=== PATIENT | female | born 1975 | race Caucasian/White ===

== ENCOUNTER 2020-03-08 10:37 | Emergency (ER) | payer OTHER, SELFPAY ==
--- NOTE | ~2020-03-08 | CT_ITS ---
EXAMINATION: CT abdomen pelvis w con DATE: 03/08/2020 12:16 INDICATION: Right lower quadrant abdominal pain TECHNIQUE: Computed tomography (CT) of the abdomen and pelvis was performed with 100 cc Omnipaque 350 intravenous contrast. Automated exposure control and iterative reconstruction technique were employe d. Exam dose: 894.78 mGy-cm total exam DLP. COMPARISON: 03/08/2020 pelvic ultrasound examination FINDINGS: Normal heart size. No pericardial or pleural effusion. The lung bases are clear of infiltra te or consolidation. There are one or more small stones in the dependent aspect of the gallbladder. No gallbladder wall th ickening or pericholecystic fluid or inflammation. The common bile duct or pancreatic duct are of nor mal caliber. No hepatic, splenic, pancreatic, adrenal space-occupying mass lesion. Approximately 4.7 cm parapelvic right renal cyst. No left renal mass lesion. No urinary tract calculu s or hydroureteronephrosis. Normal caliber of the abdominal aorta. No intraperitoneal or retroperitoneal or pelvic mass lesion or adenopathy or ascites. Normal appendix. No bowel obstruction, bowel wall thickening, pneumatosis or intraperitoneal free air. The uterus and adnexal areas are unremarkable. The urinary bladder appears normal. Included skeletal structures are unremarkable. IMPRESSION: Normal appendix Cholelithiasis Approximately 4.7 cm right renal parapelvic cyst Reviewed, dictated and finalized at [facility] Reviewed, dictated and finalized at [facility].
--- NOTE | ~2020-03-08 | US_ITS ---
EXAMINATION: US pelvic complete w TV EXAM DATE: 03/08/2020 11:34 INDICATION: Right lower abdominal pain. TECHNIQUE: Pelvic transabdominal and transvaginal sonogram was performed. There are multiple graysca le and Doppler images available for interpretation. There is no prior study for comparison. FINDINGS: Uterus measures 10.2 x 5.4 x 6.8 cm, and is morphologically normal. Endometrial stripe me asures 4 mm, within normal limits. There are nabothian cysts. There is no free pelvic fluid. Right adnexa: The ovary measures 4.1 x 2.4 x 2.6 cm and is morphologically normal. Ovarian vascular f low confirmed. Left adnexa: The ovary measures 2.7 x 2.3 x 2.3 cm and is morphologically normal. Ovarian vascular fl ow confirmed. IMPRESSION: Unremarkable pelvic ultrasound exam. Reviewed, dictated and finalized at [facility].
[2020-03-08 10:59] VITALS: BP 115/67; PULSE 75; RESP 15; TEMP 36.8; O2SAT 100
[2020-03-08 11:10] LABS: Basophils Absolute Auto 0.1 K/mm3 (0.0-0.1); Basophils Percent Auto 0.8 % (0.2-1.2); Eosinophils Absolute Auto 0.1 K/mm3 (0-0.3); Eosinophils Percent Auto 0.7 % (0-4.4); Hematocrit 39.1 % (37.0-47.0); Hemoglobin 12.5 g/dL (12.0-15.0); Immature Granulocyte Absolute 0.03 K/mm3 (0.00-0.031); Immature Granulocyte Percent A 0.3 % (0-0.5); Lymphocytes Absolute Auto 2.78 K/mm3 (0.9-3.2); Lymphocytes Percent Auto 31.2 % (18.3-44.2); Mean Corpuscular Volume 84.4 fl (80-100); Mean Platelet Volume 11.4 fl (7.4-10.4); Monocytes Absolute Auto 0.6 K/mm3 (0.1-0.6); Monocytes Percent Auto 7.1 % (2.6-8.5); Neutrophils Absolute Auto 5.3 K/mm3 (1.3-6.7); Neutrophils Percent Auto 59.9 % (45.5-73.1); Platelet Count Result 327 k/mm3 (150-375); Red Blood Count 4.63 M/mm3 (4.2-5.4); Red Cell Distribution Width 14.5 % (11.5-14.5); White Blood Count 8.9 K/mm3 (4.5-10.0)
--- NOTE | 2020-03-08 11:17 | ED.ABDPAIN ---
HPI - Abdominal Pain General Chief Complaint: Abdominal Pain Stated Complaint: rt abd pain Time Seen by Provider: 03/08/20 10:40 Source: patient Mode of arrival: ambulatory Limitations: no limitations History of Present Illness HPI narrative: This patient is a 45 year old female with history of PCOS who presents for evaluation of right lower abdominal pain. She has had this pain for 1 week but it became worse over the past 2 day . This pain is worse with walking and moving. She reports pain is located right lower abdomen, right lower back and it occasionally radiates into her upper thigh. She denies fever, vomiting or urinary symptoms. MD elicited complaint: abdominal pain Related Data Allergies Allergy/AdvReac Type Severity Reaction Status Date / Time No Known Allergies Allergy Mild Verified 03/23/10 15:07 Review of Systems Review of Systems: All systems reviewed & are unremarkable except as noted in HPI and below Constitutional: Constitutional: Denies chills and Denies fever(s) Gastrointestinal: Gastrointestinal: Reports abdominal pain, Denies diarrhea and Denies vomiting Genitourinary: Genitourinary: Denies hematuria, Denies nocturia, Denies dysuria, Denies flank pain and Denies urinary incontinence [facility] Past Medical History Medical History (Updated 03/08/20 @ 13:05 by Whit Foreman MD) Polycystic ovarian disease Surgical History Surgical History (Updated 03/08/20 @ 11:18 by Whit Foreman MD) H/O section Hx of tubal ligation Social History Social History (Updated 03/08/20 @ 11:18 by Whit Foreman MD) Smoking status: Current every day smoker Gender identity (if verbalized by the patient): Female Exam Narrative: Exam Narrative: GENERAL: Well-appearing, well-nourished, and in no acute distress. HEAD: Normocephalic, atraumatic EYES: PERRLA and EOMI, conjunctiva clear without discharge NOSE: Nares clear, no rhinorrhea or epistaxis THROAT:Mucous membranes moist, NECK: Supple, without lymphadenopathy or mass RESPIRATORY: No respiratory distress, Airway patent, Respirations non-labored, Clear to auscultation without rales, rhonchi or wheeze HEART: Regular rate and rhythm. No murmur heard. Normal peripheral pulses. ABDOMEN: Soft, mild RLQ, nondistended, normal active bowel sounds. No masses. No rebound or guarding, No organomegaly. EXTREMITIES: No edema, normal strength with full range of motion. SKIN: Warm, dry, normal color without rash NEURO: Alert and oriented x3. CN 2-12 grossly intact. No focal deficits. PSYCH: Normal mood and affect. Course Reevaluation(s) Reevaluation #1: I Discussed evaluation and results with patient. Urine had hematuria due to patient's menstrual cycle. She will follow up with PCP regarding renal cyst and she will follow up gynecology regarding pelvic pain. No ovarian torsion Date: 03/08/20 Time: 13:03 Vital Signs Vital signs: Vital Signs Temperature 98.3 F 03/08/20 10:59 Pulse Rate 75 03/08/20 10:59 Respiratory Rate 15 03/08/20 10:59 Blood Pressure 115/67 03/08/20 10:59 Pulse Oximetry 100 03/08/20 10:59 Temperature 98.3 F 03/08/20 10:59 Pulse Rate 75 03/08/20 10:59 Respiratory Rate 15 03/08/20 10:59 Blood Pressure 115/67 03/08/20 10:59 Pulse Oximetry 100 03/08/20 10:59 MDM - Abdominal Pain Lab Data Attestation: I reviewed the patient's lab results. Result diagrams: 03/08/20 10:50 03/08/20 10:50 Labs: Lab Results 03/08/20 03/08/20 03/08/20 Range/Units 10:50 10:50 10:50 WBC 8.9 (4.5-10.0) K/mm3 RBC 4.63 (4.2-5.4) M/mm3 Hgb 12.5 (12.0-15.0) g/dL Hct 39.1 (37.0-47.0) % MCV 84.4 (80-100) fl MCH 27.0 (26-34) pg MCHC 32.0 (32-36) g/dl RDW 14.5 (11.5-14.5) % Plt Count 327 (150-375) k/mm3 MPV 11.4 H (7.4-10.4) fl Immature Gran % (Auto) 0.3 (0-0.5) % Neut % (Auto) 59.9 (45.5-73.1) % Lym
[2020-03-08 11:19] LABS: Add Urine Microscopic? YES; Appearance Urine Cloudy (Clear); Bilirubin Urine Negative (Negative); Blood Urine 3+ (Negative); Color Urine Red (Yellow); Glucose Urine UA Negative (Negative); Ketones Urine Negative (Negative); Leukocyte Esterase Ur Trace LEU/UL (Negative); Mucus Urine Few /lpf; Nitrate Urine Negative (Negative); Protein Urine 2+ mg/dL (Negative); RBC Urine >75 /hpf (0-2); Specific Grav Ur 1.021 (1.001-1.035); Squamous Epithelial Cell Urine Many /hpf (Few); Urobilinogen Urine Negative mg/dL (<2.0)
[2020-03-08 11:37] LABS: Alanine Aminotransferase 14 U/L (4-35); Albumin Level 4.5 g/dL (3.5-5.1); Alkaline Phosphatase 75 U/L (38-126); Anion Gap 13.4 mmol/L (7-16); Aspartate Amino Transferase 21 U/L (14-36); Bilirubin,Total 0.4 mg/dL (0.2-1.3); Blood Urea Nitrogen 9 mg/dL (7-17); Calcium 9.2 mg/dL (8.4-10.2); Carbon Dioxide 26 mmol/L (22-30); Chloride 102 mmol/L (98-107); Estimated CRCL calculation 79 ml/min; Estimated Glomerular Filt Rate > 60; Glucose 108 mg/dL (65-105); Lipase 90 U/L (23-300); Potassium 3.4 mmol/L (3.4-5.0); Sodium 138 mmol/L (137-145)
[2020-03-08] MEDS: IBUPROFEN IV 800 MG/200 ML 800 MG/200 ML BAG 400 MG IVPB (11:38)
== END 2020-03-08 13:19 | disposition home or self-care (01) ==
PROVIDERS: Emergency Provider General Practice; PCP Physician Assistant
DX: N94.6 Dysmenorrhea, unspecified (principal); R10.31 Right lower quadrant pain; N28.1 Cyst of kidney, acquired; F17.200 Nicotine dependence, unspecified, uncomplicated; E28.2 Polycystic ovarian syndrome
CPT/HCPCS: 36415; 74177; 76830; 76856; 80053; 81001; 81025; 83690; 85025; 87086; 87088; 96365; 99284; J1741; Q9967

== ENCOUNTER 2020-03-26 10:22 | Outpatient (CLI) | payer OTHER, SELFPAY ==
[2020-03-26 11:18] LABS: Basophils Absolute Auto 0.1 K/mm3 (0.0-0.1); Basophils Percent Auto 1.1 % (0.2-1.2); Eosinophils Absolute Auto 0.1 K/mm3 (0-0.3); Hematocrit 37.5 % (37.0-47.0); Immature Granulocyte Absolute 0.03 K/mm3 (0.00-0.031); Immature Granulocyte Percent A 0.4 % (0-0.5); Lymphocytes Absolute Auto 2.76 K/mm3 (0.9-3.2); Lymphocytes Percent Auto 37.9 % (18.3-44.2); Mean Corpuscular Hemoglobin 26.6 pg (26-34); Mean Corpuscular Volume 83.1 fl (80-100); Mean Platelet Volume 11.4 fl (7.4-10.4); Monocytes Absolute Auto 0.7 K/mm3 (0.1-0.6); Monocytes Percent Auto 9.1 % (2.6-8.5); Neutrophils Absolute Auto 3.7 K/mm3 (1.3-6.7); Neutrophils Percent Auto 50.5 % (45.5-73.1); Platelet Count Result 313 k/mm3 (150-375); Red Blood Count 4.51 M/mm3 (4.2-5.4); Red Cell Distribution Width 14.3 % (11.5-14.5); White Blood Count 7.3 K/mm3 (4.5-10.0)
== END 2020-03-26 10:23 | disposition home or self-care (01) ==
PROVIDERS: PCP Physician Assistant; Visit Provider Obstetrics & Gynecology
DX: N93.9 Abnormal uterine and vaginal bleeding, unspecified (principal)
CPT/HCPCS: 36415; 85025; 86850; 86900; 86901; 87635; C9803; U0003

== ENCOUNTER 2020-03-28 01:15 | Day surgery (SDC) | payer OTHER, SELFPAY ==
[2020-03-12 14:08] VITALS: BMI 33.2
--- NOTE | 2020-03-26 07:26 | PM.IMHP ---
H&P: HPI History of Present Illness Date/Time: 03/26/20 07:26 Chief complaint: uterine prolapse, dyspurenia, pelvic pain Narrative: Alejo Summers is a 45 year old female 2 para 2 who was admitted for robotic total vaginal hysterectomy right salpingo-oophorectomy and left salpingectomy. She complains of chronic pelvic pain and has known uterine prolapse. She has dyspareunia and dysmenorrhea which has been refractory to medical therapy. She is status post tubal ligation. Risks and benefits of this procedure reviewed including but not exclusive of , aspiration pneumonia bleeding, transfusion, perforation injury to bowel, bladder, ureters, or other internal organs with need for open laparotomy. She voiced good understanding. She had all questions answered. She received the [employer] handout entitled hysterectomy as well as the [facility] handout and asked to proceed Review of Systems Review of Systems: All systems reviewed & are unremarkable except as noted in HPI and below PMFSH Past Medical History Medical History Polycystic ovarian disease Surgical History Surgical History H/O section Hx of tubal ligation Social History Social History Smoking packs per day: 0.5 Smoking cigarettes per day: 10.0 Years smoked: 10 Smoking pack-years: 5.00 Smoking status: Current every day smoker Tobacco type: cigarettes Second hand tobacco smoke exposure: No Alcohol intake: never Substance use: never Substance use type: does not use Gender identity (if verbalized by the patient): Female Spiritual care concerns: No Meds Home Medications and Allergies Home Medications Medication Instructions Recorded Confirmed Type clonazepam [Klonopin] 0.5 mg PO PRN 03/12/20 03/12/20 History trazodone 50 mg PO PRN 03/12/20 03/12/20 History Allergies Allergy/AdvReac Type Severity Reaction Status Date / Time No Known Allergies Allergy Mild Verified 03/12/20 14:08 Exam Const: General: no acute distress Eyes: General: appearance normal, both eyes and all related structures Neck: Neck: supple and no JVD Thyroid: thyroid normal Resp: Effort & Inspection: normal respiratory effort Auscultation: clear to auscultation bilaterally Cardio: Rate: regular rate Rhythm: regular rhythm GI: Inspection: non-distended GI Palp: Yes Soft to palpation, No Tenderness to palpation present (GI) and No Guarding due to palpation present (GI) Auscultation: normal bowel sounds : General: Yes bladder normal to inspection External Female Exam: normal external appearance Speculum Exam - Vagina: normal appearance of the vagina Speculum Exam - Cervix: normal appearance of the cervix Bimanual exam- vagina & uterus: normal palpation (second degree prolapse) and enlarged Bimanual Exam- Adnexa, other: tender (right) Skin: General skin exam: no rashes or lesions noted Extrem: General: normal to inspection and no edema Psych: Mental Status: mental status grossly normal Affect: normal affect Assessment and Plan Additional Plan impression: Pelvic pain/ uterine prolapse/ dyspareunia/ dysmenorrhea/right ovarian cyst Plan: Robotic total vaginal hysterectomy /right salpingo-oophorectomy /left salpingectomy
[2020-03-28] VITALS (14 sets, daily range): BP systolic 96–124; BP diastolic 47–95; PULSE 68–90; RESP 14–22; TEMP 36.1–37.1; O2SAT 95–100
--- NOTE | 2020-03-28 06:49 | WPDHPUPDATE1 ---
History and Physical Update Update Date/Time: 03/28/20 06:49 History and Physical has been reviewed, including an updated exam of the patient. There are NO changes in the patient's condition. Risks, benefits, and alternatives have been discussed and questions answered. Patient agrees to proceed with procedure.
[2020-03-28] MEDS: LACTATED RINGERS 1,000 ML 30 ML IV CONT ×2 (08:30→10:56)
[2020-03-28] MEDS: KETOROLAC 15 MG/ML VIAL (*BKC) IV PUSH (08:35)
[2020-03-28] MEDS: ACETAMINOPHEN 500 MG TABLET 1000 MG PO (08:35)
--- NOTE | 2020-03-28 08:45 | WPDANESEPPF ---
Anes - Initial Pre Proc Eval Procedure: Operation Date: 03/28/20 09:30 Proposed Procedures p Robotic Assisted Total Vaginal Hysterectomy, Right Salpingo-Oophorectomy, Left Salpingectomy - Ace Kellogg MD Date/Time: 03/28/20 08:45 Surgeon: Ace Kellogg MD Pre Op Diagnosis: uterine prolapse, dyspurenia, pelvic pain Patient Data Age: 45 Gender: F Height: 5 ft 3 in Weight: 85 kg Allergies Allergy/AdvReac Type Severity Reaction Status Date / Time No Known Allergies Allergy Mild Verified 03/28/20 07:59 Home Medications Medication Instructions Recorded Confirmed Type clonazepam [Klonopin] 0.5 mg PO PRN 03/12/20 03/12/20 History trazodone 50 mg PO PRN 03/12/20 03/28/20 History hydrocodone-acetaminophen [[place]] 1 tablet PO Q4H PRN #30 tablet 03/28/20 Rx Patient hx anesthesia problems: none Family hx anesthesia problems: none PMFSH Past Medical History Medical History Anxiety Hx of migraines Polycystic ovarian disease Smoker Surgical History Surgical History H/O section Hx of tubal ligation Social History Social History Smoking packs per day: 0.5 Smoking cigarettes per day: 10.0 Years smoked: 10 Smoking pack-years: 5.00 Smoking status: Current every day smoker Tobacco type: cigarettes Second hand tobacco smoke exposure: No Alcohol intake: never Substance use: never Substance use type: does not use Living arrangements: with family Gender identity (if verbalized by the patient): Female Spiritual care concerns: No Anes - Eval Final PreProcedure Day of Procedure 03/28/20 08:45 Patient weight: obese Heart: regular rate and rhythm Lungs: decreased breath sounds Airway: Mallampati scale class II Neurological: alert and oriented Last oral intake: >/= 8 hours ASA classification: III Emergent: no Anesthetic plan: proceed Anesthesia type and monitoring: general ETT and standard monitoring Informed Consent: The patient's anesthetic plan and its attendant risks and benefits were discussed with the patient/family/POA. Questions were solicited and answers provided to the satisfaction of the patient/family/POA.
[2020-03-28] MEDS: MIDAZOLAM HCL 2 MG/2 ML VIAL IV PUSH (09:09)
[2020-03-28] MEDS: SCOPOLAMINE 1.5 MG PATCH TRANSDERM (09:09)
[2020-03-28] MEDS: FAMOTIDINE 20 MG/2 ML VIAL IV PUSH (09:09)
[2020-03-28] MEDS: ceFAZolin 2 GM/D5W 50 ML 2 GM/50 ML BAG IVPB (09:23)
--- NOTE | 2020-03-28 10:34 | PM.PROC ---
Procedure Note - Detailed Date of procedure: 03/28/20 Pre-op diagnosis: uterine prolapse, dyspurenia, pelvic pain Surgeon: Ace Kellogg MD Postop diagnosis: Uterine prolapse/ dyspareunia/ pelvic pain/ complex right ovarian cyst /mild adhesions Procedure: Robotic total vaginal hysterectomy / right salpingo-oophorectomy / left salpingectomy EBL: 50cc Anesthesia: General endotracheal Complications: None Findings: A markedly enlarged uterus. Adhesions from omentum to the anterior abdominal wall. Complex right ovarian cyst. Benign-appearing left ovary Description of procedure: The patient was prepped and draped in the normal sterile fashion and placed in the dorsal lithotomy position. Under excellent general endotracheal anesthesia weighted speculum was placed in the posterior fornix of vagina. The anterior lip of the cervix was grasped with single-tooth tenaculum. The uterus sounded to 12cm. Serial dilatation with fragmented dilators performed followed by passage of the 10. STALIN and the 3. And half cold cup. Sixteen German catheter was placed. The remainder the instruments removed and the gloves were changed. A supraumbilical incision was made in the Veress needle passed in the abdomen. The abdomen was filled with CO2 gas to 15mm Hg. The 8mm trocar was advanced in the abdomen. The downside was visualized and no injury seen. The patient was placed in Trendelenburg and left and right lower quadrant incisions made. The 8mm trocars were advanced under direct visualization assuring no injury. A right upper quadrant incision was made in the 10mm trocar advanced under direct visualization again assuring no injury. The robot was docked Attention was then turned to the console. The left round ligament was grasped, burned, cut. Anteriorly the bladder was dissected away from the cervix and uterus caudally to the opposite round ligament which was clamped, burned, cut. The anterior omental adhesions were then sharply dissected to help visualization with the uterus. The left fallopian tube was then dissected away from the ovary as it appeared within normal limits. This was to be removed in total with the uterus. The right ovary and tube were complex and the infundibulopelvic structure was skeletonized. This was clamped, burned, cut and brought to the level of the previously cut round ligament. Next the utero-ovarian ligament was clamped, burned, cut and brought to the level of the previously cut ligament. The cardinal broad ligaments on the left were then serially skeletonized hugging the cervix cervix and uterus clamped, burned, cut brought down lateral edge until the uterine vessels could be seen on the left there were large and tortuous each was individually clamped, burned, cut. In like fashion the cardinal broad ligaments on the right were serially skeletonized. These were clamped, burned, cut and brought down hugging the cervix and uterus to the uterine vessels on the right could be seen these were serially skeletonized then serially clamped, burned, cut. Excellent blanching of the uterus was seen colpotomy incision was made in the cervix uterus right ovary and tube and left tube removed through the vagina. Blood loss was estimated at [id number]. The vagina was closed with continuous running 0V lock from lateral edge to lateral edge and back to the midline. Irrigation undertaken until clear. The pedicles appeared dry. The robot was undocked. The gas was removed from the abdomen. The trocars removed. The incisions were closed with 4 O Monocryl and glue. The patient was awakened. All sponge, needle, instrument counts were correct. There were no immediate complications
[2020-03-28] MEDS: ONDANSETRON INJ 4 MG/2 ML VIAL IV PUSH (11:23)
--- NOTE | 2020-03-28 15:18 | PC.NURSE ---
Patient arrived on the floor at 1218 after report given over the phone at 1204 by Gaby.
[2020-03-28] MEDS: IBUPROFEN 600 MG TABLET PO ×2 (16:21→22:17)
[2020-03-28] MEDS: DOCUSATE SODIUM 100 MG CAPSULE PO (16:22)
[2020-03-28] MEDS: SIMETHICONE 80 MG TAB.CHEW PO ×2 (19:26→22:17)
[2020-03-28] MEDS: traZODone HCL 50 MG TABLET 100 MG PO (23:43)
[2020-03-29] VITALS: BP 100/54; PULSE 74; RESP 18; TEMP 36.3; O2SAT 100
[2020-03-29] MEDS: IBUPROFEN 600 MG TABLET PO (03:52)
[2020-03-29] MEDS: SIMETHICONE 80 MG TAB.CHEW PO ×2 (03:52→08:27)
[2020-03-29 04:07] VITALS: BP 99/52; PULSE 70; RESP 18; TEMP 36.3; O2SAT 100
[2020-03-29 05:33] LABS: Basophils Absolute Auto 0.1 K/mm3 (0.0-0.1); Basophils Percent Auto 0.5 % (0.2-1.2); Hematocrit 32.3 % (37.0-47.0); Hemoglobin 10.4 g/dL (12.0-15.0); Immature Granulocyte Absolute 0.04 K/mm3 (0.00-0.031); Immature Granulocyte Percent A 0.4 % (0-0.5); Lymphocytes Percent Auto 18.7 % (18.3-44.2); Mean Corpuscular HGB Conc 32.2 g/dl (32-36); Mean Corpuscular Hemoglobin 26.9 pg (26-34); Mean Corpuscular Volume 83.5 fl (80-100); Mean Platelet Volume 11.7 fl (7.4-10.4); Monocytes Absolute Auto 0.7 K/mm3 (0.1-0.6); Monocytes Percent Auto 6.8 % (2.6-8.5); Neutrophils Absolute Auto 7.9 K/mm3 (1.3-6.7); Neutrophils Percent Auto 73.6 % (45.5-73.1); Platelet Count Result 272 k/mm3 (150-375); Red Blood Count 3.87 M/mm3 (4.2-5.4); Red Cell Distribution Width 14.3 % (11.5-14.5); White Blood Count 10.7 K/mm3 (4.5-10.0)
[2020-03-29 08:00] VITALS: BP 94/62; PULSE 82; PULSE 86; RESP 18; TEMP 36.6; O2SAT 100
--- NOTE | 2020-03-29 08:04 | PM.DS ---
DS: Admitting Diagnosis Admitting Diagnosis Admitting Diagnosis: uterine prolapse, dyspurenia, pelvic pain DS: Summary Hospital Course Hospital Course: Alejo Summers was admitted after robotic assisted total laparoscopic hysterectomy and right salpingo-oophorectomy and left salpingectomy for chronic pelvic pain and known prolapse. The above procedure was performed with no complications. She is doing well post op. She states her pain is well controlled with PO medications. She reports minimal bleeding. She is ambulating up to the chair. Her ann catheter was removed. She is tolerating PO without N/V. She reports passing flatus. Status at Discharge Overall status at discharge: patient is progressing back to baseline Time Spent with Patient Time attestation: Total time spent providing and/or coordinating discharge services: Time spent: Less than 30 minutes Exam Const: General: comfortable and no acute distress Limitations: no limitations Resp: Effort & Inspection: normal respiratory effort Auscultation: clear to auscultation bilaterally Cardio: Rate: regular rate Rhythm: regular rhythm GI: Inspection: non-distended GI Palp: Yes Soft to palpation, Yes Tenderness to palpation present (GI) (milder tenderness to deep palpation) and No Guarding due to palpation present (GI) Auscultation: normal bowel sounds Other: incisions C/D/I covered with dermabond Urinary Catheter: Urinary Catheter: urine clear Skin: General skin exam: normal color Extrem: General: normal to inspection Psych: Mental Status: mental status grossly normal Affect: normal affect DS: Data Data Completed and Pending Pending studies at discharge: Pending at discharge 03/28/20 10:18 Surgical [PTH] Routine Labs on day of discharge: Labs from last 24 hours 03/29/20 04:00 WBC 10.7 H RBC 3.87 L Hgb 10.4 L Hct 32.3 L MCV 83.5 MCH 26.9 MCHC 32.2 RDW 14.3 Plt Count 272 MPV 11.7 H Immature Gran % (Auto) 0.4 Neut % (Auto) 73.6 H Lymph % (Auto) 18.7 [place] % (Auto) 6.8 Eos % (Auto) 0.0 Baso % (Auto) 0.5 Lymph # (Auto) 2.00 [place] # (Auto) 0.7 H Eos # (Auto) 0.0 Baso # (Auto) 0.1 Abs Immat Gran (auto) 0.04 H Absolute Neuts (auto) 7.9 H Absolute Nucleated RBC 0.0 Nucleated RBC % 0.0 Discharge Plan Discharge Patient Disposition: Home, Self-Care Patient Instructions: Laparoscopic Hysterectomy (DC) Stand Alone Forms: General Discharge Instructions Follow-up/Referrals: Ace Kellogg MD [Physician] - Discharge Medications: New hydrocodone-acetaminophen [[place]] 5-325 mg tablet 1 tablet PO Q4H PRN (Reason: pain) Qty: 30 RF: 0 Continued clonazepam [Klonopin] 0.5 mg tablet 0.5 mg PO PRN RF: 0 trazodone 100 mg tablet 50 mg PO PRN RF: 0 Primary Care Provider: Cornelius,Ammon Mendez Attending physician on admission: Ace Kellogg
[2020-03-29] MEDS: ENOXAPARIN 40 MG/0.4 ML SYRINGE SUB-Q (08:27)
[2020-03-29] MEDS: DOCUSATE SODIUM 100 MG CAPSULE PO (08:27)
--- NOTE | 2020-03-29 08:44 | PC.NURSE ---
Discharge instructions given including prescription to be filled at pharmacy. Pt. states she will see Dr. Cyril Ruelas in 2 weeks. No questions or concerns verbalized. at side.
== END 2020-03-29 09:55 | disposition home or self-care (01) ==
LOC: ANHSURGERY 07:22 → ANHOB2 12:16
PROVIDERS: PCP Physician Assistant; Visit Provider Obstetrics & Gynecology
PROC: (CPT 58552; principal; 2020-03-28 09:30)
DX: N81.4 Uterovaginal prolapse, unspecified (principal); D25.1 Intramural leiomyoma of uterus; N88.8 Other specified noninflammatory disorders of cervix uteri; N80.0 Endometriosis of uterus; N83.01 Follicular cyst of right ovary; N70.11 Chronic salpingitis; E28.2 Polycystic ovarian syndrome; F41.9 Anxiety disorder, unspecified; F17.210 Nicotine dependence, cigarettes, uncomplicated; Z79.899 Other long term (current) drug therapy
CPT/HCPCS: 58552; S2900; 36415; 85025; 88307; 99199; A9270; J0330; J0690; J1100; J1650; J1885; J2250; J2405; J2710; J3010; J7030; J7120

== ENCOUNTER 2020-07-02 16:37 | Outpatient (CLI) | payer OTHER, SELFPAY ==
[2020-07-02 17:43] LABS: Basophils Absolute Auto 0.1 K/mm3 (0.0-0.1); Basophils Percent Auto 1.3 % (0.2-1.2); Eosinophils Absolute Auto 0.1 K/mm3 (0-0.3); Eosinophils Percent Auto 0.8 % (0-4.4); Hematocrit 41.8 % (37.0-47.0); Hemoglobin 13.6 g/dL (12.0-15.0); Immature Granulocyte Absolute 0.03 K/mm3 (0.00-0.031); Immature Granulocyte Percent A 0.4 % (0-0.5); Lymphocytes Absolute Auto 2.05 K/mm3 (0.9-3.2); Lymphocytes Percent Auto 28.6 % (18.3-44.2); Mean Corpuscular HGB Conc 32.5 g/dl (32-36); Mean Corpuscular Hemoglobin 28.4 pg (26-34); Mean Corpuscular Volume 87.3 fl (80-100); Mean Platelet Volume 11.3 fl (7.4-10.4); Monocytes Absolute Auto 0.5 K/mm3 (0.1-0.6); Monocytes Percent Auto 6.3 % (2.6-8.5); Neutrophils Absolute Auto 4.5 K/mm3 (1.3-6.7); Neutrophils Percent Auto 62.6 % (45.5-73.1); Platelet Count Result 273 k/mm3 (150-375); Red Blood Count 4.79 M/mm3 (4.2-5.4); Red Cell Distribution Width 15.2 % (11.5-14.5); White Blood Count 7.2 K/mm3 (4.5-10.0)
[2020-07-02 18:05] LABS: Alanine Aminotransferase 15 U/L (4-35); Albumin Level 4.2 g/dL (3.5-5.1); Alkaline Phosphatase 65 U/L (38-126); Anion Gap 5 mmol/L (8-16); Aspartate Amino Transferase 21 U/L (14-36); Bilirubin,Total 0.4 mg/dL (0.2-1.3); Blood Urea Nitrogen 7 mg/dL (7-17); Calcium 9.4 mg/dL (8.4-10.2); Carbon Dioxide 31 mmol/L (22-30); Chloride 103 mmol/L (98-107); Estimated Glomerular Filt Rate > 60; Glucose 106 mg/dL (65-105); Potassium 4.1 mmol/L (3.4-5.0); Sodium 139 mmol/L (137-145)
[2020-07-02 19:08] LABS: Folic Acid 6.2 ng/mL (2.76->20)
[2020-07-02 19:53] LABS: Iron 54 ug/dL (37-170)
[2020-07-02 20:02] LABS: Percent Iron Saturation 16 % (20-50)
== END 2020-07-02 16:38 | disposition home or self-care (01) ==
LOC: ANHLAB 16:39
PROVIDERS: PCP Physician Assistant; Visit Provider Internal Medicine Hematology & Oncology
DX: D64.9 Anemia, unspecified (principal)
CPT/HCPCS: 36415; 80053; 82607; 82728; 82746; 83540; 83550; 85025